=== PATIENT | female | born 1970 | race American Indian/Alaskan Native ===

== ENCOUNTER 2020-06-05 07:25 | Day surgery (SDC) | payer OTHER ==
--- NOTE | 2020-06-05 09:49 | Anesthesia Day of Surgery ---
Anesthesia Day of Surgery - Day of Surgery Patient Examined: Yes Patient H&P Reviewed: Yes Patient is NPO: Yes
--- NOTE | 2020-06-05 09:50 | Anesthesia Consultation ---
Anesthesia Consult and Med Hx Date of service: 06/05/20 - Airway Anesthetic Teeth Evaluation: Good ROM Head & Neck: Adequate Mental/Hyoid Distance: Adequate Mallampati Class: Class II Intubation Access Assessment: Probably Good - Pre-Operative Health Status ASA Pre-Surgery Classification: ASA2 Proposed Anesthetic Plan: MAC - Pulmonary Hx Smoking: Yes Hx Asthma: No (+2FS) COPD: No Hx Pneumonia: No - Cardiovascular System Hx Hypertension: Yes (x 2 years) - Central Nervous System Hx Psychiatric Problems: No - Endocrine Hx End Stage Renal Disease: No Hx Thyroid Disease: Yes Hx Hypothyroidism: Yes - Hematic Hx Anemia: Yes - Other Systems Hx Alcohol Use: Yes (occas wine) Hx Cancer: No Hx Obesity: Yes
[2020-06-05] MEDS ORDERED: LIDOCAINE MPF (2%) 20 MG/1 ML VIAL 5 ML ONE (10:48)
[2020-06-05] MEDS ORDERED: ONDANSETRON 4 MG/2 ML INJ ONE (10:48)
[2020-06-05] MEDS ORDERED: fentaNYL 100 MCG/2 ML INJ ONE (10:49)
[2020-06-05] MEDS ORDERED: propofoL 200 MG/20 ML VIAL IV ONE ×3 (10:49→11:25)
[2020-06-05] MEDS ORDERED: SODIUM CHLORIDE 0.9% 100 ML ONE (11:28)
--- NOTE | 2020-06-05 11:31 | Short Stay Summary ---
Short Stay Documentation Date of service: 06/05/20 - History H&P: obtained from office - Allergies and Medications Current Medications: Allergies No Known Allergies Allergy (Unverified 02/28/16 12:39) Home Medications Medication Instructions Recorded Confirmed Last Taken Type Levothyroxine [Synthroid] 175 mcg PO QAM 03/14/15 02/29/16 06/05/20 History amLODIPine [Norvasc] 5 mg PO DAILY 02/19/16 02/29/16 06/05/20 History traMADoL [Ultram] 50 mg PO Q6HR PRN 02/19/16 02/28/16 Unknown History oxyCODONE /ACETAMINOPHEN [Percocet 2 tab PO Q4HR #30 tab 03/01/16 Unknown Rx 5/325] Losartan-Hctz 100-25 mg Tab 06/05/20 06/05/20 History hydroCHLOROthiazide [Hctz] 12.5 mg PO QDAY 06/05/20 06/05/20 06/05/20 History - Brief post op/procedure progress note Date of procedure: 06/05/20 Findings: see dictations Estimated blood loss: none Pathology: list (antral biopsies for h.pylori) Specimen disposition: to lab Condition: stable - Disposition Condition at discharge: Good Disposition: DC-01 TO HOME OR SELFCARE - Discharge Diagnoses (1) Nausea & vomiting Status: Acute (2) Colon cancer screening Status: Acute Short Stay Discharge Plan Activity: other (no driving for 24 hours) Weight Bearing Status: Full Weight Bearing Diet: regular Follow up with: FILOMENA BOWDEN [Other] - 7 Days
--- NOTE | 2020-06-05 11:33 | Operative Report ---
Operative Report Operative Report: Date of procedure: 06/05/2020 Procedure: Esophagogastroduodenoscopy with biopsies of the antrum for H. pylori Preprocedure diagnosis: Nausea, chronic Post procedure diagnosis: Normal duodenum and stomach. Irregular Z line suggesting acid reflux. Endoscopist: Dr. Clifford Anesthesia: Monitored anesthesia care per anesthesia department Medications: Propofol per anesthesia Estimated blood loss: 0 After careful discussion of the nature and purpose of the procedure as well as details the technique risks benefits and alternatives consent was obtained. The patient was placed in the left lateral decubitus position and medicated per anesthesia. The tip of the [employer] EQ 570 video scope was passed per orum under direct vision into the esophagus and advanced into the stomach and descending duodenum. The descending duodenum the duodenal bulb and pylorus were symmetrical and normal. The scope was withdrawn into the stomach and the stomach then gently insufflated with air. The antrum was normal. Biopsies were taken in the prepyloric area for H. pylori. The stomach was further insufflated and the scope was then retroflexed and partially withdrawn. The cardia, fundus, and body of the stomach were within normal limits and easily distensible.The scope was then withdrawn in the forward position. The esophagogastric junction was at 38 cm. The Z line was irregular suggesting treated reflux although no obvious inflammation was present. The esophageal body was normal throughout. The procedure was was well tolerated and the patient was observed in recovery. Impressions: Irregular Z line suggesting controlled acid reflux. Normal stomach and duodenum. Plan: Continue omeprazole. Office follow-up in 3 months. Electronically signed: Jerrell Clifford MD
--- NOTE | 2020-06-05 11:34 | Operative Report ---
Operative Report Operative Report: Date of procedure: 06/05/2020 Preprocedure diagnosis: Colon cancer screening, no prior studies. Average risk. Post procedure diagnosis: Normal study. Procedure: Colonoscopy to the cecum Endoscopist: Dr. Clifford Anesthesia: Monitored anesthesia care per anesthesia department Estimated blood loss: 0 Medications: Monitored anesthesia care. See separate report by anesthesia for details. After careful discussion of the nature and purpose of the procedure as well as details of the technique risks benefits and alternatives the patient gave consent. Please see recent history and physical from the office. The patient was placed in the left lateral decubitus position and medicated per anesthesia. A rectal exam was performed sphincter tone was normal there were no masses palpable. The [employer] 570 scope was passed transanally and advanced under continuous direct vision without difficulty to the cecum. The colon was well prepared. The cecum was normal. The ascending colon was normal and on forward and retroflexed views. The transverse colon, descending colon, and sigmoid colon were normal. The rectum was normal on forward and retroflexed views. The procedure was well-tolerated overall and the patient was observed in recovery. Conclusions: Normal colonoscopy to the cecum. Plan: Repeat colonoscopy in 10 years, sooner if clinically indicated. Signed electronically: Jerrell Clifford M.D.
[2020-06-05 12:41] VITALS: BP 117/81
--- NOTE | 2020-06-05 17:29 | Post Anesthesia Evaluation ---
- Post Anesthesia Evaluation Patient Participated: Yes Airway Patent: Yes Stable Respiratory Function: Yes Nausea/Vomiting: No Temp > 96.8F: Yes Pain Manageable: Yes Adequeate Hydration: Yes Anesthesia Complications: No Block Receding Appropriately: Not Applicable Patient on Ventilator: No
== END 2020-06-05 13:10 | disposition home or self-care (01) ==
LOC: GIO 07:25
PROVIDERS: ATTEND Internal Medicine Gastroenterology
DX: Z12.11 Encounter for screening for malignant neoplasm of colon (principal); R11.0 Nausea; K29.50 Unspecified chronic gastritis without bleeding; E03.9 Hypothyroidism, unspecified; I10 Essential (primary) hypertension; E66.9 Obesity, unspecified; Z98.891 History of uterine scar from previous surgery; Z79.899 Other long term (current) drug therapy; Z72.89 Other problems related to lifestyle; Z98.890 Other specified postprocedural states; Z68.34 Body mass index [BMI] 34.0-34.9, adult
CPT/HCPCS: 43239; 45378; 88305; 88342; J2405; J2704; J3010

== ENCOUNTER 2020-07-19 11:07 | Outpatient (CLI) | payer OTHER ==
--- NOTE | 2020-07-19 13:16 | Fluoroscopy Report ---
Upper GI HISTORY: DIAPHRAMATIC HERNIA W/O OBSTRUCTION. Technique: Single and double contrast barium technique utilized to evaluate the esophagus, stomach, and duodenal C-loop. Findings: To begin the exam, swallowing was evaluated in the lateral position under direct fluorosco py. Swallowing was normal. No mucosal irregularity, mass, mass effect, or critical stenosis. There were no abnormal tertiary c ontractions as seen with dysmotility. No gastroesophageal reflux. Impression: Unremarkable exam. Fluoroscopic time: 1.3 minutes Number of fluoroscopic images: 17 Signer Name: Vic Lugo MD Signed: 07/19/2020 1:11 PM Workstation Name: [id number]
== END 2020-07-19 11:08 | disposition home or self-care (01) ==
LOC: FLUORO 11:07
PROVIDERS: ATTEND Surgery
DX: K44.9 Diaphragmatic hernia without obstruction or gangrene (principal)
CPT/HCPCS: 74246

== ENCOUNTER 2021-03-30 16:30 | Emergency (ER) | payer SELFPAY ==
[2021-03-30 17:12] VITALS: BP 124/86
== END 2021-03-30 19:49 | disposition left against medical advice (07) ==
LOC: ED 16:30
DX: L02.424 Furuncle of left upper limb (principal); Z53.21 Procedure and treatment not carried out due to patient leaving prior to being seen by health care provider

== ENCOUNTER 2021-12-25 11:53 | Outpatient (CLI) | payer MEDICAID ==
--- NOTE | 2021-12-25 14:11 | XRay Report ---
BILATERAL KNEES 6 VIEWS INDICATION / CLINICAL INFORMATION: BILATERAL KNEE PAIN COMPARISON: None available. FINDINGS: BONES / JOINT(S): No acute fracture or subluxation. There is mild joint space narrowing at the patell ofemoral and medial tibiofemoral compartments bilaterally. SOFT TISSUES: No significant abnormality. ADDITIONAL FINDINGS: None. IMPRESSION: No acute findings. Signer Name: Kevin Rascon MD Signed: 12/25/2021 2:06 PM Workstation Name: [email or web address]
== END 2021-12-25 11:54 | disposition home or self-care (01) ==
LOC: XRAY 11:53
PROVIDERS: ATTEND Internal Medicine
DX: M25.562 Pain in left knee (principal); M25.561 Pain in right knee

== ENCOUNTER 2022-05-08 21:23 | Emergency (ER) | payer MEDICAID, OTHER ==
[2022-05-08 21:33] VITALS: BP 122/86
[2022-05-08 23:30] LABS: Basophils # (Auto) 0.1 K/mm3 (0.0-0.1); Basophils % (Auto) 0.5 % (0.0-1.8); Eosinophils # (Auto) 0.2 K/mm3 (0.0-0.4); Eosinophils % (Auto) 1.8 % (0.0-4.3); Hematocrit 38.6 % (30.3-42.9); Hemoglobin 13.2 gm/dl (10.1-14.3); Lymphocytes # (Auto) 3.4 K/mm3 (1.2-5.4); Lymphocytes % (Auto) 26.2 % (13.4-35.0); Mean Corpuscular HGB Conc 34 % (30-34); Mean Corpuscular Volume 107 fl (79-97); Platelet Count 230 K/mm3 (140-440); Red Blood Count 3.62 M/mm3 (3.65-5.03)
[2022-05-08 23:48] LABS: Albumin 4.6 g/dL (3.9-5); Calcium 9.1 mg/dL (8.4-10.2)
--- NOTE | 2022-05-09 10:56 | Electrocardiograph Report ---
[facility] Test Date: 2022-05-08 Test Time: 21:37:44 Pat Name: ALCIDES CULLEN Department: Room: Gender: F Courtesy Driver: ELIZABETH : 1970 Requested By: RAMON ARMENTA Order Number: [id number] Reading MD: Mir Molina Measurements Intervals [place] Rate: 96 P: 60 CO: 162 QRS: 80 QRSD: 63 T: 63 QT: QTc: 0 Interpretive Statements Sinus rhythm Low voltage, precordial leads No previous ECG available for comparison Electronically Signed On 05-09-2022 10:56:08 EDT by Mir Molina
== END 2022-05-09 05:00 | disposition left against medical advice (07) ==
LOC: ED 21:23
DX: I62.9 Nontraumatic intracranial hemorrhage, unspecified (principal); Z53.21 Procedure and treatment not carried out due to patient leaving prior to being seen by health care provider
CPT/HCPCS: 36415; 80053; 85025; 93005